=== PATIENT | female | born 1975 | race Caucasian/White ===

== ENCOUNTER 2017-08-25 15:06 | Emergency (ER) | payer MEDICAID, OTHER ==
[~2017-08-25] VITALS: Ht 154.9 cm; Wt 63.5 kg
[~2017-08-25 15:06] MED LIST: [UNRECOGNIZED DRUG - REMARK]
[2017-08-25 15:16] VITALS: BP 117/82
--- NOTE | 2017-08-25 15:33 | NUR ---
patient to lobby to awaiting available room with steady gait. gcs=15. rr are even and unlabored.
--- NOTE | 2017-08-25 15:50 | NUR ---
PATIENT PRESENTS TO ED WITH CHIEF C/O ANXIETY . PT STATES HAVING NUMBNESS AND TINGLING ON HER LEFT ARM SINCE THIS MORNING . DENIES N/D AT THIS TIME. HAD THROW UP THIS MORNING. SKIN IS PINK/WARM/DRY; AAOX4 WITH EVEN AND STEADY GAIT. HR EVEN AND REGULAR; PT DENIES ANY FEVER, CP, SOB, OR COUGH AT THIS TIME. PATIENT STATES PAIN OF 0/10 AT THIS TIME; VSS WNL. PATIENT POSITIONED FOR COMFORT; HOB ELEVATED; BEDRAILS UP X2; BED DOWN. ER MD MADE AWARE OF PT STATUS.
--- NOTE | 2017-08-25 19:24 | NUR ---
PT C/O LEFT ARM PAIN 10/01. DOCTOR MADE AWARE. ASSIGNED NURSE MADE AWARE. REPORT GIVEN TO NOC SHIFT RN FOR CONINUITY OF CARE.
--- NOTE | 2017-08-25 19:25 | NUR ---
RECEIVED REPORT FROM AM NURSE. PT RESTING IN BED COMFORTABLY, RR EVEN AND UNLABORED. ALL NEEDS MET AT THIS TIME.
--- NOTE | 2017-08-25 20:09 | NUR ---
Dr. Medrano evaluating patient at bedside.
[2017-08-25] MEDS ORDERED: KETOROLAC 30 MG/ML VIAL IM ONE (20:50)
--- NOTE | 2017-08-25 21:56 | NUR ---
PT TAKEN TO CT
--- NOTE | 2017-08-25 22:00 | NUR ---
PT RESTING COMFORTABLY IN BED, RR EVEN AND UNLABORED. PT REPORTS DECREASED PAIN, ALL NEEDS MET AT THIS TIME.
[2017-08-25 23:20] VITALS: BP 121/88
--- NOTE | 2017-08-25 23:20 | NUR ---
Patient discharged with v/s stable. Written and verbal after care instructions given and explained. Patient alert, oriented and verbalized understanding of instructions. Ambulatory with steady gait. All questions addressed prior to discharge. ID band removed. Patient advised to follow up with PMD. Rx of FLEXERIL, IBUPROFEN given. Patient educated on indication of medication including possible reaction and side effects. Opportunity to ask questions provided and answered.
== END 2017-08-25 23:20 | disposition home or self-care (01) ==
LOC: MED 15:06
DX: M62.838 Other muscle spasm (principal); Z88.0 Allergy status to penicillin
CPT/HCPCS: 72125; 81002; 81025; 93005; 96372; 99284; J1885

== ENCOUNTER 2020-08-18 11:12 | Emergency (ER) | payer SELFPAY ==
[~2020-08-18] VITALS: Ht 154.9 cm; Wt 63.5 kg
[2020-08-18 11:14] VITALS: BP 113/79
[2020-08-18] MEDS ORDERED: IBUPROFEN 600 MG TAB PO ONE (11:40)
[2020-08-18] MEDS ORDERED: cefTRIAXone 1,000 MG in LIDOCAINE MPF 1% 2.1 ML IM ONE (11:40)
[2020-08-18] MEDS ORDERED: cefTRIAXone 1,000 MG VIAL ONE (11:47)
[2020-08-18] MEDS ORDERED: LIDOCAINE MPF 1% 5 ML ONE (11:47)
[2020-08-18 11:53] LABS: BILIRUBIN,URINE NEGATIVE (NEGATIVE); COLOR,URINE ORANGE (YELLOW); LEUKOCYTE ESTERASE ,URINE 2+ (NEGATIVE); NITRITE, URINE POSITIVE (NEGATIVE); PH,URINE 6.5 (5.0-9.0); UGLUCOSE NEGATIVE (NEGATIVE)
[2020-08-18 12:02] LABS: APPEARANCE,URINE SLIGHTLY HAZY (CLEAR); BLOOD, URINE 2+ (NEGATIVE)
[2020-08-18] MEDS ORDERED: PYR100 PO (12:42)
[2020-08-18] MEDS ORDERED: IBUP-1876 PO (12:42)
[2020-08-18] MEDS ORDERED: CEPH-588 PO (12:42)
[2020-08-18 13:02] VITALS: BP 114/65
== END 2020-08-18 13:02 | disposition home or self-care (01) ==
LOC: MED 11:12
DX: N39.0 Urinary tract infection, site not specified (principal); Z88.2 Allergy status to sulfonamides; Z79.899 Other long term (current) drug therapy
CPT/HCPCS: 81001; 81025; 87086; 96372; 99283; J0696; J2001